=== PATIENT | male | born 1970 | race Two or more races ===

== ENCOUNTER 2024-10-31 15:19 | Emergency (ER) | payer MEDICARE, MEDICAID ==
[~2024-10-31] VITALS: Ht 177.8 cm; Wt 140.0 kg
--- NOTE | 2024-10-31 16:18 | ED.PDOC ---
History of Present Illness HPI Comments 54 year old male brought in via EMS for wellness check onset today. Per EMS, patient requests to come to ED for "[facility] detox." Upon ED arrival, patient states he has no compliants, refuses to answer any question, requested to see a "white doctor." No other symptoms or modifying factors present at this time. Chief Complaint: Detox Clearance Time Seen by MD: 15:30 Reviewed Notes: Medications, Allergies Information Source: Patient, Emergency Med Personnel Mode of Arrival: EMS Severity: Moderate Timing: Hours Duration: Since onset Prehospital treatment: None Past Medical History PAST MEDICAL HISTORY: Unknown Surgical History: Unknown Family History Family History: Unknown Social History Smoker: Unknown Alcohol: Unknown Drugs: Unknown Lives In: Unknown Constitutional: denies: chills, diaphoresis, fatigue, fever, malaise, sweats, weakness, others EENTM: denies: blurred vision, double vision, ear bleeding, ear discharge, ear drainage, ear pain, ear ringing, eye pain, eye redness, hearing loss, mouth pain, mouth swelling, nasal discharge, nose bleeding, nose congestion, nose pain, photophobia, tearing, throat pain, throat swelling, voice changes, others Respiratory: denies: cough, hemoptysis, orthopnea, SOB at rest, shortness of breath, SOB with excertion, stridor, wheezing, others Cardiovascular: denies: chest pain, dizzy spells, diaphoresis, Dyspnea on exertion, edema, irregular heart beat, left arm pain, lightheadedness, palpitations, PND, syncope, others Gastrointestinal: denies: abdomen distended, abdominal pain, blood streaked bowels, constipated, diarrhea, dysphagia, difficulty swallowing, hematemesis, melena, nausea, poor appetite, poor fluid intake, rectal bleeding, rectal pain, vomiting, others Genitourinary: denies: burning, dysuria, flank pain, frequency, hematuria, incontinence, penile discharge, penile sore, pain, testicle pain, testicle swelling, urgency, others Neurological: denies: dizziness, fainting, headache, left sided numbness, left sided weakness, numbness, paresthesia, pre-existing deficit, right sided numbness, right sided weakness, seizure, speech problems, tingling, tremors, weakness, others Musculoskeletal: denies: back pain, gout, joint pain, joint swelling, muscle pain, muscle stiffness, neck pain, others Integumetry: denies: bruises, change in color, change in hair/nails, dryness, laceration, lesions, lumps, rash, wounds, others Allergic/Immunocompromised: denies: Difficulty Healing, Frequent Infections, Hives, Itching, others Hematologic/Lymphatic: denies: anemia, blood clots, easy bleeding, easy bruising, swollen glands, others Endocrine: denies: excessive hunger, excessive sweating, excessive thirst, excessive urination, flushing, intolerance to cold, intolerance to heat, unexplained weight gain, unexplained weight loss, others Psychiatric: denies: anxiety, bipolar disorder, depression, hopeless, panic disorder, schizophrenia, sleepless, suicidal, others All Other Systems: Reviewed and Negative Physical Exam General Appearance: Mild Distress, Obese HEENT: Normal ENT Inspection, Pharynx Normal, TMs Normal Neck: Full Range of Motion, Non-Tender, Normal, Normal Inspection Respiratory: Chest Non-Tender, Lungs Clear, No Accessory Muscle Use, No Respiratory Distress, Normal Breath Sounds Cardiovascular: No Edema, No JVD, No Murmur, No Gallop, Normal Peripheral Pulses, Regular Rate/Rhythm Breast Exam: Deferred Gastrointestinal: No Organomegaly, Non Tender, No Pulsatile Mass, Normal Bowel Sounds, Soft Genitalia: Deferred Pelvic: Deferred Rectal: Deferred Extremities: No calf tenderness, Normal capillary refill, Normal inspection, Normal range of motion, Non-tender, No pedal edema Musculoskeletal : Apperance: Normal Neurologic: Alert, 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 Was a procedure done?: No Differential Dx Considerations may include: Anxiety X-Ray, Labs, Meds, VS Vital Signs Date Time Temp Pulse Resp B/P (MAP) Pulse Ox O2 Delivery O2 Flow Rate FiO2 10/31/24 15:19 111 18 121/81 (94) 100 Patient alert. No sign of distress. Denies any symptoms. Vitals stable. He does not want any labs. He wants to detox. He states that he can take care himself. Not cooperating. Could not order any labs. Will not order any imaging. He states that he is perfectly fine he just came to get out of the house. Explained to the patient. Continue monitoring. Was told to follow up with his primary care physician. Was told to come back if there is any problem. Time of 1ST Reevaluation: 16:00 Reevaluation 1ST: Improved Patient Education/Counseling: Diagnosis, Treatment, Prognosis Family Education/Counseling: No Family Present Departure 1 Departure Time of Disposition: 17:04 Impression: Primary Impression: Anxiety Disposition: 07 LEFT AWOL/ELOPED Condition: Good Discharged With: Self Critical Care Note Critical Care Time?: No Stability Stability form required: No Heart Score Heart Score: Heart Score Response (Comments) Value History N/A 0 EKG N/A 0 Age N/A 0 Risk Factors N/A 0 Troponin N/A 0 Total 0 I personally scribed for NOELLE SALCIDO MD ([email or web address]) on 10/31/24 at 16:18. E lectronically submitted by Hilary Tinsley ([email or web address]). NOELLE SALCIDO MD Oct 31, 2024 16:18
[2024-10-31 19:32] LABS: Basophils # (auto) 0.1 10 ^3/uL (0-0.2); Basophils % (auto) 0.5 % (0.0-2.0); Eosinophils # (auto) 0 10 ^3/uL (0-0.8); Hematocrit 50.6 % (41.0-53.0); Hemoglobin 16.9 g/dL (13.5-17.5); Lymphocytes % (auto) 8.3 % (10.0-50.0); Mean Corpuscular Hgb Conc. 33.4 g/dL (32.0-36.0); Mean Corpuscular Volume 83.8 fL (80.0-100.0); Monocytes # (auto) 0.7 10 ^3/uL (0-1.3); Monocytes % (auto) 3.1 % (0.0-12.0); Neutrophils % (auto) 88.1 % (37.0-80.0); Nucleated Red Blood Cells % 0.1 %; Platelet Count (auto) 443 10^3/uL (140-450); Red Blood Cells 6.04 10^6/uL (4.5-5.90); Red Cell Distribution Width 13.8 % (11.8-14.3); White Blood Cell 23.8 10^3/uL (4.4-10.8)
[2024-10-31 19:50] LABS: Potassium 4.3 mmol/L (3.5-5.1)
[2024-10-31 19:51] LABS: Calcium 10.1 mg/dL (8.7-10.4); Carbon Dioxide 22 mmol/L (20-31)
[2024-10-31 19:56] LABS: BUN/Creatinine Ratio 8.6 (10.0-20.0); Blood Urea Nitrogen 11 mg/dL (9-23); Glucose 223 mg/dL (74-106); Sodium 133 mmol/L (136-145)
[2024-10-31 20:01] LABS: Blood Alcohol < 3.0 mg/dL (<10)
[2024-10-31 20:07] LABS: Anion Gap 11 (5-15); Chloride 100 mmol/L (98-107)
[2024-10-31 20:26] VITALS: BP 152/87; PULSE 112; RESP 18; TEMP 98.4; O2SAT 95
[2024-10-31] MEDS ORDERED: SODIUM CHLORIDE 0.9% 1,000 ML IV ONE (20:30)
== END 2024-11-01 01:23 | disposition left against medical advice (07) ==
LOC: EDBD 15:19 → ER 15:19
DX: F41.9 Anxiety disorder, unspecified (principal); F12.229 Cannabis dependence with intoxication, unspecified
CPT/HCPCS: 36415; 80048; 80320; 85025

== ENCOUNTER 2024-11-07 23:15 | Emergency (ER) | payer MEDICARE, MEDICAID ==
[~2024-11-07] VITALS: Ht 185.4 cm; Wt 138.4 kg
[2024-11-07 23:23] VITALS: BP 152/91; PULSE 105; RESP 20; TEMP 98.1; O2SAT 20
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
[2024-11-08 00:11] LABS: Basophils # (auto) 0.2 10 ^3/uL (0-0.2); Basophils % (auto) 1.3 % (0.0-2.0); Eosinophils # (auto) 0.1 10 ^3/uL (0-0.8); Eosinophils % (auto) 0.9 % (0.0-7.0); Hematocrit 42.9 % (41.0-53.0); Hemoglobin 14.6 g/dL (13.5-17.5); Lymphocytes # (auto) 4.8 10 ^3/uL (0.4-5.4); Lymphocytes % (auto) 33.6 % (10.0-50.0); Mean Corpuscular Hemoglobin 28.8 pg (28.0-32.0); Mean Corpuscular Hgb Conc. 34.1 g/dL (32.0-36.0); Mean Corpuscular Volume 84.5 fL (80.0-100.0); Monocytes # (auto) 1.3 10 ^3/uL (0-1.3); Monocytes % (auto) 8.8 % (0.0-12.0); Neutrophils % (auto) 55.4 % (37.0-80.0); Nucleated Red Blood Cells % 0.1 %; Platelet Count (auto) 447 10^3/uL (140-450); Red Blood Cells 5.08 10^6/uL (4.5-5.90); Red Cell Distribution Width 13.6 % (11.8-14.3); White Blood Cell 14.4 10^3/uL (4.4-10.8)
[2024-11-08 00:35] LABS: Alanine Aminotransferase 21 U/L (7-40); Albumin 4.7 g/dL (3.2-4.8); Alkaline Phosphatase 65 U/L (46-116); Anion Gap 5 (5-15); Aspartate Aminotransferase 21 U/L (13-40); BUN/Creatinine Ratio 12.1 (10.0-20.0); Bilirubin, Total 0.4 mg/dL (0.2-1.0); Blood Alcohol 3.2 mg/dL (<10); Blood Urea Nitrogen 13 mg/dL (9-23); Calcium 9.7 mg/dL (8.7-10.4); Carbon Dioxide 28 mmol/L (20-31); Chloride 105 mmol/L (98-107); Potassium 4.1 mmol/L (3.5-5.1); Sodium 138 mmol/L (136-145); Total Protein 7.2 g/dL (5.7-8.2)
[2024-11-08 00:38] LABS: Glucose 176 mg/dL (74-106)
--- NOTE | 2024-11-08 03:55 | DVH ---
Examination: HWOCT CLINICAL INDICATION: AMS COMPARISON: None. CONTRAST USED: None. TECHNIQUE: The examination was performed obtaining 5 mm slices without contrast. CT scan done accor ding to ALARA (As Low as Reasonably Achievable). Multiplanar reconstructions were obtained. FINDINGS: SUPRATENTORIAL BRAIN: Cerebral Hemispheres: There is no midline shift or mass effect, intra or extra-axial fluid collectio ns or hemorrhage. Periventricular White Matter/Basal Ganglia: No abnormal areas of altered attenuation within the josephine ventricular white matter or basal ganglia. POSTERIOR FOSSA: The brainstem is normal and the visualized cerebellar hemispheres are unremarkable. VENTRICULAR SYSTEM: The ventricular system is normal in size. There is no evidence of hydrocephalus or transependymal flow of cerebrospinal fluid. SKULL BASE AND PARASELLAR REGION: The skull base is normal with no parasellar masses or abnormalitie s identified. CALVARIUM AND SCALP REGION: No abnormality is seen. PARANASAL SINUSES: Mild S-shaped deviation of the nasal septum. No significant inflammatory changes are identified in the paranasal sinuses. IMPRESSION: 1. No evidence of calvarial fracture or extra-axial collection. 2. No acute intracranial abnormality. No evidence of acute infarct or intracranial hemorrhage. 3. Dill-white matter differentiation is well maintained. Electronically Signed 11/08/2024 03:54 Henrry Vasquez
== END 2024-11-08 03:59 | disposition left against medical advice (07) ==
LOC: ER 23:15 → EDBD 23:15 → ER 11-08 03:56
DX: R46.1 Bizarre personal appearance (principal); R41.82 Altered mental status, unspecified; Z88.1 Allergy status to other antibiotic agents; Z79.899 Other long term (current) drug therapy
CPT/HCPCS: 36415; 70450; 80053; 80320; 85025